=== PATIENT | male | born 1940 | race Hispanic/Latino ===

== ENCOUNTER 2016-12-05 09:09 | Outpatient (CLI) | payer MEDICARE ==
[2016-12-05 10:25] LABS: Blood Urea Nitrogen 12 mg/dL (9-20)
--- NOTE | 2016-12-05 13:45 | Nuclear Medicine Report ---
NUCLEAR MEDICINE WHOLE-BODY BONE SCAN: 12/05/16 10:00:00 CLINICAL: Malignant neoplasm left lower lobe lung diagnosed three years ago. COMPARISON: 12/21/15 TECHNIQUE: 25.0millicuries technetium 99m MDP was injected intravenously and whole body scans were obtained at 3 hours. FINDINGS: Normal distribution of radionuclide in the skeleton and soft tissues. Normal distribution of radionuclide in the urinary tract. No suspicious uptake. IMPRESSION: Normal study.
--- NOTE | 2016-12-05 13:50 | Cat Scan Report ---
CT CHEST WITH CONTRAST: HISTORY: Left lung cancer. TECHNIQUE: Helical CT following IV contrast. Sagittal and coronal reformatted images. FINDINGS: Compared to 05/03/16. Partial left pneumonectomy changes or radiation changes are again noted and unchanged. There are mild emphysematous changes bilaterally. No evidence for a mass, nodule, infiltrate, effusion or pneumothorax. Platelike scarring in the superior left lower lobe is unchanged. Heart and mediastinal structures remain within normal limits. No mediastinal mass or adenopathy. The thoracic cage is intact. No abnormal bony production or destruction. IMPRESSION: Stable findings in the chest since 05/03/16. No evidence for disease recurrence or metastasis.
--- NOTE | 2016-12-05 13:56 | Cat Scan Report ---
CT ABDOMEN WITH CONTRAST History: Left lung cancer Technique: Helical CT following IV and oral contrast. Sagittal and coronal reformatted images. Findings: Normal liver, biliary system, spleen and adrenal glands. Scattered tiny renal cysts are unchanged. No evidence for renal mass, nephrolithiasis or hydronephrosis. The proximal ureters are normal caliber. There are mild pancreatic calcifications primarily in the pancreatic head consistent with chronic pancreatitis. No mass or acute inflammatory changes are appreciated. The visualized bowel loops are normal caliber and wall thickness. Normal appendix. There are a few diverticula in the descending colon. No suspicious bony lesion or fracture is identified. No evidence for adenopathy or ascites. Impression: Stable findings in the abdomen since 05/03/16. No evidence for disease metastasis. Chronic pancreatitis. Mild diverticulosis of the distal colon. Scattered tiny simple renal cysts.
== END 2016-12-05 09:10 | disposition home or self-care (01) ==
LOC: NM 09:09
PROVIDERS: ATTEND Internal Medicine Hematology & Oncology
DX: C34.32 Malignant neoplasm of lower lobe, left bronchus or lung (principal); N28.1 Cyst of kidney, acquired; K57.30 Diverticulosis of large intestine without perforation or abscess without bleeding; K85.90 Acute pancreatitis without necrosis or infection, unspecified; K86.89 Other specified diseases of pancreas; Z90.2 Acquired absence of lung [part of]
CPT/HCPCS: 36415; 71260; 74160; 78306; 82565; 84520; A9503; Q9967